=== PATIENT | male | born 1985 | race Caucasian/White ===

== ENCOUNTER 2023-03-24 15:33 | Inpatient (IN) | payer OTHER ==
[2023-03-24 15:56] VITALS: BMI 25.4
[2023-03-24] MEDS ORDERED: ONDANSETRON *ODT* 4 MG TABLET SL PRN (17:06)
[2023-03-24] MEDS ORDERED: BISMUTH SUBSALICYLATE 524 MG/30 ML PO PRN (17:06)
[2023-03-24] MEDS ORDERED: NICOTINE POLACRILEX 2 MG GUM BUC PRN (17:06)
[2023-03-24] MEDS ORDERED: IBUPROFEN 400 MG TABLET (FP) PO PRN (17:06)
[2023-03-24] MEDS ORDERED: BENZONATATE 200 MG CAPSULE PO PRN (17:06)
[2023-03-24] MEDS ORDERED: LOPERAMIDE HCL 2 MG CAPSULE PO PRN (17:06)
[2023-03-24] MEDS ORDERED: DICYCLOMINE HCL 10 MG CAPSULE PO PRN (17:06)
[2023-03-24] MEDS ORDERED: MAG HYDROX/AL HYDROX/SIMETH 30 ML UNIT-DOSE CUP PO PRN (17:06)
[2023-03-24] MEDS ORDERED: BENZOCAINE/MENTHOL (CHLORASEPTIC ) LOZENGE MM PRN (17:06)
[2023-03-24] MEDS ORDERED: ACETAMINOPHEN 325 MG TABLET (FP) PO PRN ×2 (17:06)
[2023-03-24] MEDS ORDERED: P-EPHED 60MG/TRIPROLIDI 2.5MG TABLET PO PRN (17:06)
[2023-03-24] MEDS ORDERED: MAGNESIUM HYDROX 2400MG/30ML ORAL SUSPENSION 30 ML CUP PO PRN (17:06)
[2023-03-24] MEDS ORDERED: guaiFENesin 600 MG TABLET.ER (FP) PO PRN (17:06)
[2023-03-24] MEDS ORDERED: NALOXONE HCL 0.4 MG/ML VIAL IM PRN (17:06)
[2023-03-24] MEDS ORDERED: NALOXONE HCL (KLOXXADO) 8 MG SPRAY NS PRN (17:06)
[2023-03-24] MEDS ORDERED: IBUPROFEN 600 MG TABLET (FP) PO PRN (17:06)
[2023-03-24] MEDS ORDERED: POLYETHYLENE GLYCOL (HEALTHYLAX) 3350 17 GM PACKET PO PRN (17:06)
[2023-03-24] MEDS: METHOCARBAMOL 500 MG TABLET PO PRN (22:42)
[2023-03-24] MEDS: THIAMINE HCL 100 MG TABLET (FP) PO SCH (22:42)
[2023-03-24] MEDS: MELATONIN 5 MG TABLETS PO SCH (22:42)
[2023-03-24] MEDS ORDERED: methaDONE HCL 10 MG TABLET (FOR DETOX USE ONLY) PO ONE (23:00)
[2023-03-25] MEDS: METHOCARBAMOL 500 MG TABLET PO PRN (10:24)
[2023-03-25] MEDS: PRENATAL VITAMINS W/ FOLIC ACID TABLET (FP) PO SCH (10:24)
[2023-03-25] MEDS: cloNIDine HCL 0.1 MG TABLET PO PRN ×2 (10:24→22:20)
[2023-03-25] MEDS: hydrOXYzine PAMOATE 25 MG CAPSULE (FP) PO PRN ×2 (10:24→22:20)
[2023-03-25] MEDS: NICOTINE 7 MG/24 HOURS TOPICAL PATCH TD SCH (10:25)
[2023-03-25 12:28] LABS: HEMATOCRIT 41.1 % (35.4-49); HEMOGLOBIN 13.7 GM/dL (11.7-16.9); MCH 27.4 pg (25.7-33.7); MCHC 33.2 g/dl (32.0-35.9); MEAN CELL VOLUME 82.6 fl (80-96); MEAN PLT VOLUME 9.1 fl (7.5-11.1); PLATELET COUNT 231 10^3/uL (134-434); RBC 4.98 M/mm3 (4.00-5.60); RDW 14.3 % (11.9-15.9); WHITE BLOOD COUNT 7.4 K/mm3 (4.0-10.0)
[2023-03-25 13:17] LABS: POTASSIUM 3.6 mmol/L (3.5-5.1)
[2023-03-25 13:29] LABS: CALCIUM 8.8 mg/dL (8.5-10.1)
[2023-03-25 13:30] LABS: ALBUMIN 3.3 g/dl (3.4-5.0); BLOOD UREA NITROGEN 12.1 mg/dL (7-18)
[2023-03-25 13:33] LABS: CREATININE 0.8 mg/dL (0.55-1.3)
[2023-03-25 13:34] LABS: BILIRUBIN,TOTAL 0.6 mg/dL (0.2-1)
[2023-03-25 13:36] LABS: TOT PROT 5.9 g/dl (6.4-8.2)
[2023-03-25] MEDS: MELATONIN 5 MG TABLETS PO SCH (22:19)
[2023-03-25] MEDS: THIAMINE HCL 100 MG TABLET (FP) PO SCH (22:21)
[2023-03-26 05:49] VITALS: BP 135/84
[2023-03-26 09:37] VITALS: PULSE 57; RESP 18; TEMP 97.3
[2023-03-26] MEDS ORDERED: methaDONE HCL 10 MG TABLET (FOR DETOX USE ONLY) PO ONE (10:00)
[2023-03-26] MEDS: PRENATAL VITAMINS W/ FOLIC ACID TABLET (FP) PO SCH (10:16)
[2023-03-26] MEDS: NICOTINE 7 MG/24 HOURS TOPICAL PATCH TD SCH (10:16)
[2023-03-26] MEDS: METHOCARBAMOL 500 MG TABLET PO PRN (10:16)
[2023-03-26] MEDS: hydrOXYzine PAMOATE 25 MG CAPSULE (FP) PO PRN (10:16)
[2023-03-28] MEDS ORDERED: methaDONE HCL 10 MG TABLET (FOR DETOX USE ONLY) PO ONE (10:00)
== END 2023-03-26 12:30 | disposition left against medical advice (07) | DRG 770 ==
LOC: YASAS 15:33 → Y6N 16:52
PROVIDERS: ADMIT Allergy & Immunology; ATTEND Psychiatry & Neurology Pain Medicine
PROC: HZ2ZZZZ Detoxification Services for Substance Abuse Treatment (ICD-10-PCS; principal; 2023-03-24)
DX: F11.23 Opioid dependence with withdrawal (principal); F14.20 Cocaine dependence, uncomplicated; F17.210 Nicotine dependence, cigarettes, uncomplicated
CPT/HCPCS: 36415; 80053; 83036; 85027; 86780; C9803-CS; U0003; U0005

== ENCOUNTER 2023-08-25 16:14 | Inpatient (IN) | payer OTHER ==
[2023-08-25 17:57] VITALS: BMI 20.3
[2023-08-25] MEDS ORDERED: IBUPROFEN 600 MG TABLET (FP) PO PRN (20:13)
[2023-08-25] MEDS ORDERED: ACETAMINOPHEN 325 MG TABLET (FP) PO PRN (20:13)
[2023-08-25] MEDS ORDERED: NALOXONE HCL 0.4 MG/ML VIAL IM PRN (20:13)
[2023-08-25] MEDS ORDERED: METHOCARBAMOL 500 MG TABLET PO PRN (20:13)
[2023-08-25] MEDS ORDERED: IBUPROFEN 400 MG TABLET (FP) PO PRN (20:13)
[2023-08-25] MEDS ORDERED: methaDONE HCL 10 MG TABLET (FOR DETOX USE ONLY) PO ONE (20:13)
[2023-08-25] MEDS ORDERED: MAG HYDROX/AL HYDROX/SIMETH 30 ML UNIT-DOSE CUP PO PRN (20:13)
[2023-08-25] MEDS ORDERED: BENZOCAINE/MENTHOL (CHLORASEPTIC ) LOZENGE MM PRN (20:13)
[2023-08-25] MEDS ORDERED: NICOTINE POLACRILEX 2 MG GUM BUC PRN (20:13)
[2023-08-25] MEDS ORDERED: POLYETHYLENE GLYCOL (HEALTHYLAX) 3350 17 GM PACKET PO PRN (20:13)
[2023-08-25] MEDS ORDERED: NALOXONE HCL (KLOXXADO) 8 MG SPRAY NS PRN (20:13)
[2023-08-25] MEDS ORDERED: DICYCLOMINE HCL 10 MG CAPSULE PO PRN (20:13)
[2023-08-25] MEDS ORDERED: BISMUTH SUBSALICYLATE 524 MG/30 ML PO PRN (20:13)
[2023-08-25] MEDS ORDERED: LOPERAMIDE HCL 2 MG CAPSULE PO PRN (20:13)
[2023-08-25] MEDS ORDERED: BENZONATATE 200 MG CAPSULE PO PRN (20:13)
[2023-08-25] MEDS ORDERED: guaiFENesin 600 MG TABLET.ER (FP) PO PRN (20:13)
[2023-08-25] MEDS ORDERED: ONDANSETRON *ODT* 4 MG TABLET SL PRN (20:13)
[2023-08-25] MEDS ORDERED: MAGNESIUM HYDROX 2400MG/30ML ORAL SUSPENSION 30 ML CUP PO PRN (20:13)
[2023-08-25] MEDS ORDERED: methaDONE HCL 10 MG TABLET (FOR DETOX USE ONLY) ONE (20:29)
[2023-08-25] MEDS ORDERED: diazePAM 5 MG TABLET ONE (20:39)
[2023-08-25] MEDS ORDERED: cloNIDine HCL 0.1 MG TABLET ONE (20:39)
[2023-08-25] MEDS: cloNIDine HCL 0.1 MG TABLET PO PRN (20:50)
[2023-08-25] MEDS: diazePAM 5 MG TABLET PO PRN (20:51)
[2023-08-25] MEDS: THIAMINE HCL 100 MG TABLET (FP) PO SCH (22:38)
[2023-08-25] MEDS: MELATONIN 5 MG TABLETS PO SCH (22:38)
[2023-08-26] MEDS ORDERED: diazePAM 5 MG TABLET PO PRN (09:17)
[2023-08-26] MEDS: NICOTINE 14 MG/24 HOURS TOPICAL PATCH TD SCH (10:04)
[2023-08-26] MEDS: PRENATAL VITAMINS W/ FOLIC ACID TABLET (FP) PO SCH (10:04)
[2023-08-26] MEDS: diazePAM 5 MG TABLET PO PRN ×2 (10:06→19:49)
[2023-08-26 12:22] LABS: HEMATOCRIT 46.2 % (35.4-49); HEMOGLOBIN 14.7 GM/dL (11.7-16.9); MCH 26.8 pg (25.7-33.7); MCHC 31.9 g/dl (32.0-35.9); MEAN CELL VOLUME 83.9 fl (80-96); MEAN PLT VOLUME 7.9 fl (7.5-11.1); PLATELET COUNT 374 10^3/uL (134-434); RDW 14.6 % (11.9-15.9)
[2023-08-26 12:23] LABS: CHLORIDE 106 mmol/L (98-107); POTASSIUM 4.1 mmol/L (3.5-5.1); SODIUM 142 mmol/L (136-145)
[2023-08-26 12:32] LABS: CALCIUM 9.1 mg/dL (8.5-10.1)
[2023-08-26 12:33] LABS: ANION GAP 8 mmol/L (4-13); CO2 29 mmol/L (21-32); GLUCOSE,RANDOM 111 mg/dL (74-106)
[2023-08-26 12:34] LABS: ALBUMIN 3.5 g/dl (3.4-5.0)
[2023-08-26 12:36] LABS: BLOOD UREA NITROGEN 21.1 mg/dL (7-18); CREATININE 0.7 mg/dL (0.55-1.3); SGPT/ALT 25 U/L (13-61)
[2023-08-26 12:38] LABS: BILIRUBIN,TOTAL 0.9 mg/dL (0.2-1); TOT PROT 7.2 g/dl (6.4-8.2)
[2023-08-26 12:39] LABS: ALK PHOS 79 U/L (45-117); SGOT/AST 18 U/L (15-37)
[2023-08-26] MEDS: MELATONIN 5 MG TABLETS PO SCH (23:14)
[2023-08-26] MEDS: THIAMINE HCL 100 MG TABLET (FP) PO SCH (23:14)
[2023-08-27] MEDS ORDERED: methaDONE HCL 10 MG TABLET (FOR DETOX USE ONLY) PO ONE (10:00)
[2023-08-27] MEDS: PRENATAL VITAMINS W/ FOLIC ACID TABLET (FP) PO SCH (10:05)
[2023-08-27] MEDS: diazePAM 5 MG TABLET PO PRN ×3 (10:05→22:31)
[2023-08-27] MEDS: NICOTINE 14 MG/24 HOURS TOPICAL PATCH TD SCH (10:07)
[2023-08-27] MEDS: cloNIDine HCL 0.1 MG TABLET PO PRN (17:16)
[2023-08-27] MEDS: THIAMINE HCL 100 MG TABLET (FP) PO SCH (22:31)
[2023-08-27] MEDS: MELATONIN 5 MG TABLETS PO SCH (22:33)
[2023-08-28] MEDS: diazePAM 5 MG TABLET PO PRN ×2 (09:38→18:43)
[2023-08-28] MEDS: PRENATAL VITAMINS W/ FOLIC ACID TABLET (FP) PO SCH (09:38)
[2023-08-28] MEDS: NICOTINE 14 MG/24 HOURS TOPICAL PATCH TD SCH (09:39)
[2023-08-28 16:51] VITALS: TEMP 97.8
[2023-08-28] MEDS ORDERED: cloNIDine HCL 0.1 MG TABLET PO PRN (18:42)
[2023-08-28 19:16] VITALS: BP 118/67; PULSE 82; RESP 18
[2023-08-29] MEDS ORDERED: methaDONE HCL 10 MG TABLET (FOR DETOX USE ONLY) PO ONE (10:00)
== END 2023-08-28 20:07 | disposition left against medical advice (07) | DRG 770 ==
LOC: YASAS 16:14 → Y6N 20:50
PROVIDERS: ADMIT Allergy & Immunology; ATTEND Surgery
PROC: HZ2ZZZZ Detoxification Services for Substance Abuse Treatment (ICD-10-PCS; principal; 2023-08-25)
DX: F11.23 Opioid dependence with withdrawal (principal); F10.20 Alcohol dependence, uncomplicated; F14.20 Cocaine dependence, uncomplicated; F17.210 Nicotine dependence, cigarettes, uncomplicated; F19.24 Other psychoactive substance dependence with psychoactive substance-induced mood disorder; M54.50 Low back pain, unspecified; G89.29 Other chronic pain; Z28.310 Unvaccinated for COVID-19; Z28.9 Immunization not carried out for unspecified reason; Z59.00 Homelessness unspecified
CPT/HCPCS: 36415; 80053; 80307; 83036; 85027; 86780; 87635; Q0162

== ENCOUNTER 2023-09-14 14:10 | Inpatient (IN) | payer OTHER ==
[2023-09-14 15:17] VITALS: BMI 21.7
[2023-09-14] MEDS ORDERED: methaDONE HCL 10 MG TABLET (FOR DETOX USE ONLY) PO ONE (17:18)
[2023-09-14] MEDS ORDERED: chlordiazePOXIDE HCL 25 MG CAPSULE PO PRN (17:18)
[2023-09-14] MEDS ORDERED: IBUPROFEN 400 MG TABLET (FP) PO PRN (17:20)
[2023-09-14] MEDS ORDERED: METHOCARBAMOL 500 MG TABLET PO PRN (17:20)
[2023-09-14] MEDS ORDERED: LOPERAMIDE HCL 2 MG CAPSULE PO PRN (17:20)
[2023-09-14] MEDS ORDERED: BENZOCAINE/MENTHOL (CHLORASEPTIC ) LOZENGE MM PRN (17:20)
[2023-09-14] MEDS ORDERED: BENZONATATE 200 MG CAPSULE PO PRN (17:20)
[2023-09-14] MEDS ORDERED: NICOTINE POLACRILEX 2 MG GUM BUC PRN (17:20)
[2023-09-14] MEDS ORDERED: guaiFENesin 600 MG TABLET.ER (FP) PO PRN (17:20)
[2023-09-14] MEDS ORDERED: NALOXONE HCL 0.4 MG/ML VIAL IM PRN (17:20)
[2023-09-14] MEDS ORDERED: P-EPHED 60MG/TRIPROLIDI 2.5MG TABLET PO PRN (17:20)
[2023-09-14] MEDS ORDERED: BISMUTH SUBSALICYLATE 524 MG/30 ML PO PRN (17:20)
[2023-09-14] MEDS ORDERED: IBUPROFEN 600 MG TABLET (FP) PO PRN (17:20)
[2023-09-14] MEDS ORDERED: DICYCLOMINE HCL 10 MG CAPSULE PO PRN (17:20)
[2023-09-14] MEDS ORDERED: NALOXONE HCL (KLOXXADO) 8 MG SPRAY NS PRN (17:20)
[2023-09-14] MEDS ORDERED: MAG HYDROX/AL HYDROX/SIMETH 30 ML UNIT-DOSE CUP PO PRN (17:20)
[2023-09-14] MEDS ORDERED: POLYETHYLENE GLYCOL (HEALTHYLAX) 3350 17 GM PACKET PO PRN (17:20)
[2023-09-14] MEDS ORDERED: ACETAMINOPHEN 325 MG TABLET (FP) PO PRN (17:20)
[2023-09-14] MEDS ORDERED: MAGNESIUM HYDROX 2400MG/30ML ORAL SUSPENSION 30 ML CUP PO PRN (17:20)
[2023-09-14] MEDS ORDERED: methaDONE HCL 10 MG TABLET (FOR DETOX USE ONLY) ONE (18:05)
[2023-09-14] MEDS ORDERED: chlordiazePOXIDE HCL 25 MG CAPSULE ONE (18:06)
[2023-09-14] MEDS: chlordiazePOXIDE HCL 25 MG CAPSULE PO SCH ×2 (18:21→23:40)
[2023-09-14] MEDS ORDERED: MELATONIN 5 MG TABLETS PO SCH (22:00)
[2023-09-14] MEDS: THIAMINE HCL 100 MG TABLET (FP) PO SCH (22:43)
[2023-09-15] MEDS: chlordiazePOXIDE HCL 25 MG CAPSULE PO SCH ×4 (05:56→22:03)
[2023-09-15] MEDS: PRENATAL VITAMINS W/ FOLIC ACID TABLET (FP) PO SCH (10:35)
[2023-09-15] MEDS: SUVOREXANT 10 MG TABLET PO PRN (22:02)
[2023-09-15] MEDS: THIAMINE HCL 100 MG TABLET (FP) PO SCH (22:03)
[2023-09-16] MEDS: cloNIDine HCL 0.1 MG TABLET PO PRN ×2 (00:59→10:13)
[2023-09-16] MEDS: chlordiazePOXIDE HCL 25 MG CAPSULE PO SCH ×4 (05:50→22:05)
[2023-09-16] MEDS ORDERED: methaDONE HCL 10 MG TABLET (FOR DETOX USE ONLY) PO ONE (10:00)
[2023-09-16] MEDS: PRENATAL VITAMINS W/ FOLIC ACID TABLET (FP) PO SCH (10:09)
[2023-09-16] MEDS: THIAMINE HCL 100 MG TABLET (FP) PO SCH (22:04)
[2023-09-16] MEDS: SUVOREXANT 10 MG TABLET PO PRN (22:05)
[2023-09-17] MEDS ORDERED: chlordiazePOXIDE HCL 10 MG CAPSULE PO PRN
[2023-09-17] MEDS: chlordiazePOXIDE HCL 10 MG CAPSULE PO SCH ×2 (05:27→10:15)
[2023-09-17] MEDS: PRENATAL VITAMINS W/ FOLIC ACID TABLET (FP) PO SCH (10:14)
[2023-09-17 10:22] LABS: HEMATOCRIT 45.7 % (35.4-49); HEMOGLOBIN 14.5 GM/dL (11.7-16.9); MCH 26.4 pg (25.7-33.7); MCHC 31.7 g/dl (32.0-35.9); MEAN CELL VOLUME 83.3 fl (80-96); MEAN PLT VOLUME 8.4 fl (7.5-11.1); PLATELET COUNT 256 10^3/uL (134-434); RBC 5.49 M/mm3 (4.00-5.60); RDW 14.8 % (11.9-15.9); WHITE BLOOD COUNT 8.1 K/mm3 (4.0-10.0)
[2023-09-17 12:30] LABS: CALCIUM 8.8 mg/dL (8.5-10.1)
[2023-09-17 12:31] LABS: ALBUMIN 3.2 g/dl (3.4-5.0)
[2023-09-17 12:34] LABS: CREATININE 0.9 mg/dL (0.55-1.3)
[2023-09-17 12:35] LABS: BILIRUBIN,TOTAL 0.7 mg/dL (0.2-1); TOT PROT 6.1 g/dl (6.4-8.2)
[2023-09-17 13:37] VITALS: BP 158/92; PULSE 81; RESP 17; TEMP 97.8
[2023-09-18] MEDS ORDERED: chlordiazePOXIDE HCL 10 MG CAPSULE PO SCH (05:00)
[2023-09-18] MEDS ORDERED: methaDONE HCL 10 MG TABLET (FOR DETOX USE ONLY) PO ONE (10:00)
[2023-09-19] MEDS ORDERED: chlordiazePOXIDE HCL 10 MG CAPSULE PO ONE (05:00)
== END 2023-09-17 14:40 | disposition left against medical advice (07) | DRG 770 ==
LOC: YASAS 14:10 → Y6N 18:19
PROVIDERS: ADMIT Allergy & Immunology; ATTEND Surgery
PROC: HZ2ZZZZ Detoxification Services for Substance Abuse Treatment (ICD-10-PCS; principal; 2023-09-14)
DX: F11.23 Opioid dependence with withdrawal (principal); F10.230 Alcohol dependence with withdrawal, uncomplicated; F14.20 Cocaine dependence, uncomplicated; F17.210 Nicotine dependence, cigarettes, uncomplicated; F19.280 Other psychoactive substance dependence with psychoactive substance-induced anxiety disorder; F19.282 Other psychoactive substance dependence with psychoactive substance-induced sleep disorder; F41.9 Anxiety disorder, unspecified; M54.50 Low back pain, unspecified; G89.29 Other chronic pain; Z28.310 Unvaccinated for COVID-19; Z28.9 Immunization not carried out for unspecified reason; Z59.00 Homelessness unspecified
CPT/HCPCS: 36415; 80053; 85027; 87635; 93005; 93010

== ENCOUNTER 2024-10-15 13:35 | Inpatient (IN) | payer OTHER ==
[2024-10-15 14:56] VITALS: BMI 20.6
[2024-10-15] MEDS ORDERED: BENZONATATE 200 MG CAPSULE PO PRN (15:30)
[2024-10-15] MEDS ORDERED: IBUPROFEN 400 MG TABLET (FP) PO PRN (15:30)
[2024-10-15] MEDS ORDERED: ONDANSETRON *ODT* 4 MG TABLET SL PRN (15:30)
[2024-10-15] MEDS ORDERED: POLYETHYLENE GLYCOL (HEALTHYLAX) 3350 17 GM PACKET PO PRN (15:30)
[2024-10-15] MEDS ORDERED: DICYCLOMINE HCL 10 MG CAPSULE PO PRN (15:30)
[2024-10-15] MEDS ORDERED: NALOXONE (NARCAN) HCL 4 MG/0.1 ML SPRAY NS PRN (15:30)
[2024-10-15] MEDS ORDERED: BENZOCAINE/MENTHOL (CHLORASEPTIC ) LOZENGE MM PRN (15:30)
[2024-10-15] MEDS ORDERED: guaiFENesin 600 MG TABLET.ER (FP) PO PRN (15:30)
[2024-10-15] MEDS ORDERED: MAGNESIUM HYDROX 2400MG/30ML ORAL SUSPENSION 30 ML CUP PO PRN (15:30)
[2024-10-15] MEDS ORDERED: IBUPROFEN 600 MG TABLET (FP) PO PRN (15:30)
[2024-10-15] MEDS ORDERED: LOPERAMIDE HCL 2 MG CAPSULE PO PRN (15:30)
[2024-10-15] MEDS ORDERED: methaDONE HCL 10 MG TABLET (FOR DETOX USE ONLY) PO PRN (15:38)
[2024-10-15] MEDS ORDERED: cloNIDine HCL 0.1 MG TABLET ONE (16:00)
[2024-10-15] MEDS ORDERED: methaDONE HCL 10 MG TABLET (FOR DETOX USE ONLY) ONE (16:00)
[2024-10-15] MEDS: methaDONE HCL 10 MG TABLET (FOR DETOX USE ONLY) PO ONE (16:17)
[2024-10-15] MEDS: cloNIDine HCL 0.1 MG TABLET PO PRN (16:17)
[2024-10-15] MEDS ORDERED: diazePAM 5 MG TABLET ONE (21:36)
[2024-10-15] MEDS: CLINDAMYCIN HCL 150 MG CAPSULE (FP) PO SCH (22:03)
[2024-10-15] MEDS: CLINDAMYCIN PHOSPHATE 1% TOPICAL GEL 30 GM TUBE TP SCH (22:03)
[2024-10-15] MEDS: MELATONIN 5 MG TABLETS PO SCH (22:12)
[2024-10-15] MEDS: THIAMINE 100 MG TABLET PO SCH (22:12)
[2024-10-15] MEDS: diazePAM 5 MG TABLET PO SCH (22:13)
[2024-10-16] MEDS ORDERED: diazePAM 5 MG TABLET ONE ×2 (05:55→11:04)
[2024-10-16] MEDS ORDERED: methaDONE HCL 10 MG TABLET (FOR DETOX USE ONLY) ONE (10:43)
[2024-10-16] MEDS ORDERED: NICOTINE 21 MG/24 HOURS TOPICAL PATCH ONE (10:43)
[2024-10-16] MEDS ORDERED: PRENATAL VITAMINS W/ FOLIC ACID TABLET (FP) PO ONE (10:44)
[2024-10-16] MEDS: NICOTINE 21 MG/24 HOURS TOPICAL PATCH TD SCH (10:54)
[2024-10-16] MEDS: PRENATAL VITAMINS W/ FOLIC ACID TABLET (FP) PO SCH (10:57)
[2024-10-16] MEDS: METHOCARBAMOL 500 MG TABLET PO PRN (20:07)
[2024-10-16] MEDS: hydrOXYzine PAMOATE 25 MG CAPSULE (FP) PO PRN (20:07)
[2024-10-16] MEDS: HYDROCORTISONE 1% TOPICAL CREAM 30 GM TUBE TP ONE (20:15)
[2024-10-17] MEDS: diazePAM 5 MG TABLET PO SCH (05:30)
[2024-10-17] MEDS: methaDONE HCL 10 MG TABLET (FOR DETOX USE ONLY) PO ONE (10:29)
[2024-10-17] MEDS: HYDROCORTISONE 1% TOPICAL CREAM 30 GM TUBE TP SCH (10:30)
[2024-10-17] MEDS: methaDONE HCL 10 MG TABLET PO ONE (12:02)
[2024-10-17] MEDS: NICOTINE POLACRILEX 4 MG GUM BUC PRN (15:53)
[2024-10-17] MEDS: diazePAM 5 MG TABLET PO PRN (17:12)
[2024-10-17] MEDS: NICOTINE POLACRILEX 4 MG LOZENGE BC PRN (21:52)
[2024-10-18] MEDS: diazePAM 5 MG TABLET PO SCH (05:36)
[2024-10-18] MEDS: ACETAMINOPHEN 325 MG TABLET (FP) PO PRN (06:06)
[2024-10-18] MEDS: methaDONE 40 MG, methaDONE 20 MG PO ONE (09:08)
[2024-10-18] MEDS ORDERED: methaDONE HCL 40 MG DISPERSABLE TABLET PO ONE (10:00)
[2024-10-18 13:46] LABS: CHLORIDE 106 mmol/L (98-107); POTASSIUM 4.2 mmol/L (3.5-5.1); SODIUM 139 mmol/L (136-145)
[2024-10-18 13:53] LABS: ANION GAP 6 mmol/L (4-13); BLOOD UREA NITROGEN 28.4 mg/dL (7-18); CALCIUM 8.8 mg/dL (8.5-10.1); CO2 26 mmol/L (21-32); GLUCOSE,RANDOM 110 mg/dL (74-106)
[2024-10-18 13:56] LABS: CREATININE 0.8 mg/dL (0.55-1.3); SGPT/ALT 44 U/L (13-61)
[2024-10-18 13:57] LABS: BILIRUBIN,TOTAL 0.2 mg/dL (0.2-1); SGOT/AST 28 U/L (15-37)
[2024-10-18 13:58] LABS: TOT PROT 5.8 g/dl (6.4-8.2)
[2024-10-18 13:59] LABS: ALK PHOS 74 U/L (45-117)
[2024-10-18] MEDS: BISMUTH SUBSALICYLATE 524 MG/30 ML PO PRN (17:28)
[2024-10-19] MEDS: MAG HYDROX/AL HYDROX/SIMETH 30 ML UNIT-DOSE CUP PO PRN (04:52)
[2024-10-19] MEDS: diazePAM 5 MG TABLET PO ONE (05:36)
[2024-10-19 06:44] VITALS: TEMP 97.3
[2024-10-19] MEDS: methaDONE 40 MG, methaDONE 30 MG PO ONE (09:14)
[2024-10-19] MEDS: cloNIDine HCL 0.1 MG TABLET PO PRN (09:14)
[2024-10-19] MEDS ORDERED: methaDONE HCL 40 MG DISPERSABLE TABLET PO ONE (10:00)
[2024-10-19] MEDS ORDERED: methaDONE HCL 10 MG TABLET (FOR DETOX USE ONLY) PO ONE (10:00)
[2024-10-19] MEDS: NALOXONE (NYS OPIOID OVERDOSE PROGRAM) 4 MG/0.1 ML SPRAY NS SCH (11:02)
[2024-10-19 13:03] VITALS: BP 117/65; PULSE 99; RESP 16
[2024-10-20] MEDS ORDERED: methaDONE HCL 40 MG DISPERSABLE TABLET PO ONE (10:00)
== END 2024-10-19 16:45 | disposition home or self-care (01) | DRG 773 ==
LOC: YASAS 13:35 → Y6N 10-16 09:44
PROVIDERS: ADMIT Surgery; ATTEND Surgery
PROC: HZ2ZZZZ Detoxification Services for Substance Abuse Treatment (ICD-10-PCS; principal; 2024-10-16)
DX: F11.23 Opioid dependence with withdrawal (principal); F10.230 Alcohol dependence with withdrawal, uncomplicated; F14.20 Cocaine dependence, uncomplicated; F17.210 Nicotine dependence, cigarettes, uncomplicated; F19.282 Other psychoactive substance dependence with psychoactive substance-induced sleep disorder; F19.24 Other psychoactive substance dependence with psychoactive substance-induced mood disorder; F51.05 Insomnia due to other mental disorder; L03.113 Cellulitis of right upper limb; M54.50 Low back pain, unspecified; G89.29 Other chronic pain; R63.4 Abnormal weight loss; Z68.20 Body mass index [BMI] 20.0-20.9, adult; Z91.81 History of falling; Z59.00 Homelessness unspecified; S41.101A Unspecified open wound of right upper arm, initial encounter; X58.XXXA Exposure to other specified factors, initial encounter; Y93.9 Activity, unspecified; Y92.9 Unspecified place or not applicable
CPT/HCPCS: 36415; 80053; 80307; 86780; 87070; 87186; 87205; 93005; 93010